=== PATIENT | female | born 1985 | race Caucasian/White ===

== ENCOUNTER → 2018-11-16 | Outpatient (CLI) | payer MEDICAID ==
--- NOTE | 2018-11-16 17:51 | RAD ---
Three-view thoracic spine series Clinical indications: Chronic back pain. No known injury. FINDINGS: Mild scoliotic curvature is seen. No compression fracture or discitis or lytic process is evident. There is minimal degenerative endplate spurring throughout the thoracic spine. IMPRESSION: No acute compression fracture. Electronically signed by: Gerry Lares MD (11/16/2018 5:48 PM) [id number]
--- NOTE | 2018-11-16 17:52 | RAD ---
Three-view lumbar spine series Clinical indications: Chronic back pain. No known injury. FINDINGS: The transverse processes are intact. There is grade 1 anterolisthesis of L5-S1 which may be secondary to bilateral spondylolysis of L5. No compression fracture or discitis or lytic process is evident. IMPRESSION: Minimal grade 1 anterolisthesis of L5-S1 which may be secondary to bilateral spondylosis of L5. This may be further evaluated with CT study of the lumbar spine. Electronically signed by: Gerry Lares MD (11/16/2018 5:49 PM) [facility]
== END | disposition home or self-care (01) ==
LOC: PMG 14:24
PROVIDERS: ATTEND Registered Nurse
DX: M43.16 Spondylolisthesis, lumbar region (principal); M51.34 Other intervertebral disc degeneration, thoracic region; M41.87 Other forms of scoliosis, lumbosacral region; G89.29 Other chronic pain
CPT/HCPCS: 72072; 72100

== ENCOUNTER → 2018-11-22 | Outpatient (CLI) | payer MEDICAID ==
--- NOTE | 2018-11-22 16:15 | RAD ---
PQRS Compliance statement: One or more of the following individualized dose reduction techniques were utilized for this examination: 1. Automated exposure control. 2. Adjustment of the mA and/or kV according to patient size. 3. Use of iterative reconstruction technique. Indication:Back pain. TECHNIQUE: CT lumbar spine without IV contrast with multiplanar reformats. COMPARISON: None. FINDINGS: Lumbar spine is in normal anatomic alignment. No compression deformities. There are 5 lumbar type vertebral bodies. Facet joints are in normal anatomic alignment with bilateral L5 pars defect. No anterolisthesis of L5 over S1. Segmental analysis: L1-L2: No disc bulge or herniation. No facet arthropathy. No neuroforamina narrowing. L2-L3: Mild circumferential disc bulge flattening intrathecal sac. No facet arthropathy. No neuroforamina narrowing. L3-L4: Mild circumferential disc bulge flattening intrathecal sac. No facet arthropathy. No neuroforamina narrowing. L4-L5: Mild circumferential disc bulge flattening intrathecal sac. No facet arthropathy. Mild bilateral neuroforamina narrowing. L5-S1: No significant disc bulge or herniation. No facet arthropathy. No neuroforamina narrowing. Bilateral SI joints are within normal limits. IMPRESSION: Bilateral L5 pars defect without malalignment. No significant evidence of degenerative disc disease. Electronically signed by: Jack Guerrero DO (11/22/2018 4:12 PM) [id number]
--- NOTE | 2018-11-22 16:24 | RAD ---
Bone densitometry 11/22/2018 1:20 PM Indication: Screening exam Comparison Study: None. Discussion: Bone Densitometry was performed with dual photon absorption of the lumbar spine and proximal right femur. Lumbar Spine: Bone average density is 1.128g/cm2 for L1-L4. T-Score is -0.4. Right femoral neck: Bone average density is 0.851g/cm2. T-Score is -1.3. IMPRESSION: Osteopenia based on decreased bone mineral density, right femoral neck Note: Definitions established by the World Health Organization: Normal: T-score is -1.0 or above. Osteopenia: T-score is between -1.0 and -2.5. Osteoporosis: T-score is -2.5 or below. Electronically signed by: Hamilton Coy MD (11/22/2018 4:21 PM) [id number]
== END | disposition home or self-care (01) ==
LOC: CT 13:02
PROVIDERS: ATTEND Registered Nurse
DX: M85.88 Other specified disorders of bone density and structure, other site (principal); M48.061 Spinal stenosis, lumbar region without neurogenic claudication; E55.9 Vitamin D deficiency, unspecified; M43.10 Spondylolisthesis, site unspecified
CPT/HCPCS: 72131; 77080

== ENCOUNTER → 2018-12-08 | Outpatient (CLI) | payer MEDICAID ==
--- NOTE | 2018-12-08 15:23 | RAD ---
EXAM: Chest, 2 views. HISTORY: Cough. COMPARISON: None. FINDINGS: 2 views of the chest are obtained. There is no infiltrate, pleural effusion or pneumothorax. The heart is normal in size. IMPRESSION: No acute pulmonary finding. Electronically signed by: Lucila Gonzalez MD (12/08/2018 3:20 PM) [place] [id number]
== END | disposition home or self-care (01) ==
LOC: PMG 13:53
PROVIDERS: ATTEND Registered Nurse
DX: R06.02 Shortness of breath (principal)
CPT/HCPCS: 71046

== ENCOUNTER 2018-12-09 12:47 | Emergency (ER) | payer MEDICAID ==
[~2018-12-09] VITALS: Ht 170.2 cm; Wt 68.0 kg
--- NOTE | 2018-12-09 13:41 | PHYS DOC ---
Past History Past Medical History: Other Additional Past Medical Histor: osteopenia Past Surgical History: Other Additional Past Surgical Histo: cyst on wrist; ACL left Alcohol Use: None Drug Use: None Adult General Chief Complaint Chief Complaint: MULTIPLE COMPLAINTS [facility] HPI 33-year-old female presents with dizziness and altered sensation. The patient has been having symptoms like this on and off for a few weeks. She is being evaluated by her primary care physician. No definitive diagnosis has been made. Patient is supposed to see a charge master coordinator and a neurologist but has not had his appointments yet. She was given a be seen by her primary care physician came to the emergency room because she was feeling mildly short of breath and dizzy. She describes the dizziness as a lightheaded, off balance feeling. She's been having these episodes more recently this seemed to come and go without warning. She had recent blood work which was reported to be normal by her PCP. She did have an elevated MICHELE. She was also found to be osteopenic. Patient denies fever or chills. She has had no trauma or falls. Review of Systems Review of Systems Constitutional: Denies fever or chills [] Eyes: Denies change in visual acuity, redness, or eye pain [] HENT: Denies nasal congestion or sore throat [] Respiratory: Mild, intermittent shortness of breath [] Cardiovascular: No additional information not addressed in HPI [] GI: Denies abdominal pain, nausea, vomiting, bloody stools or diarrhea [] : Denies dysuria or hematuria [] Musculoskeletal: Denies back pain or joint pain [] Integument: Denies rash or skin lesions [] Neurologic: Dizziness. Denies headache, focal weakness or sensory changes [] Endocrine: Denies polyuria or polydipsia [] All other systems were reviewed and found to be within normal limits, except as documented in this note. Allergies Allergies Allergies Coded Allergies Type Severity Reaction Last Updated Verified erythromycin base Allergy Unknown Rash 12/09/18 Yes Physical Exam Physical Exam Constitutional: Well developed, well nourished, no acute distress, non-toxic appearance. [] HENT: Normocephalic, atraumatic, bilateral external ears normal, oropharynx moist, no oral exudates, nose normal. [] Eyes: PERRLA, EOMI, conjunctiva normal, no discharge. [] Neck: Normal range of motion, no tenderness, supple, no stridor. [] Cardiovascular:Heart rate regular rhythm, no murmur [] Lungs & Thorax: Bilateral breath sounds clear to auscultation [] Abdomen: Bowel sounds normal, soft, no tenderness, no masses, no pulsatile masses. [] Skin: Warm, dry, no erythema, no rash. [] Back: No tenderness, no CVA tenderness. [] Extremities: No tenderness, no cyanosis, no clubbing, ROM intact, no edema. [] Neurologic: Alert and oriented X 3, normal motor function, normal sensory function, no focal deficits noted. [] Psychologic: Affect normal, judgement normal, mood normal. [] Current Patient Data Vital Signs Vital Signs Date Time Temp Pulse Resp B/P (MAP) Pulse Ox O2 Delivery O2 Flow Rate FiO2 12/09/18 13:01 98.4 99 17 99 Room Air EKG EKG [] Radiology/Procedures Radiology/Procedures [] Impressions: Examination: CT HEAD WO CONTRAST History: Dizziness Comparison/Correlation: None Findings: Axial images were obtained without contrast. Ventricles are normal size. No intracranial hemorrhage, midline shift, or mass effect. Bony structures are unremarkable. Visualized paranasal sinuses are unremarkable Impression: No acute process. PQRS Compliance Statement: One or more of the following individualized dose reduction techniques were utilized for this examination: 1. Automated exposure control 2. Adjustment of the mA and/or kV according to patient size 3. Use of iterative reconstruction technique Electronically signed by: Danny Ga MD (12/09/2018 2:00 PM) [facility] DICTATED AND SIGNED BY: DANNY GA MD DATE: 12/09/18 1400 CC: EDITA SAM DO; ESDON ESTRADA PRIMARY CLINICIAN-C ~ Course & Med Decision Making Course & Med Decision Making Pertinent Labs and Imaging studies reviewed. (See chart for details) The patient's head CT is negative for acute findings. Her urine drug screen is negative. Her labs are completely unremarkable. Urinalysis is negative for infection. The patient's symptoms do not appear to be life-threatening. I have shared all these results with the patient. She is comfortable with discharge at this time. She will follow up as planned. She is stable for discharge at this time. [] Dragon Disclaimer Dragon Disclaimer This electronic medical record was generated, in whole or in part, using a voice recognition dictation system. Departure Departure: Impression: Primary Impression: Dizziness Disposition: 01 HOME, SELF-CARE Condition: STABLE Referrals: EDSON ESTRADA NP-C (PCP) Patient Instructions: Dizziness, [id number] EDITA SAM DO Dec 09, 2018 13:41
[2018-12-09] MEDS ORDERED: IV NORMAL SALINE 1,000ML 1,000 ML IV ONE (13:45)
--- NOTE | 2018-12-09 14:03 | RAD ---
Examination: CT HEAD WO CONTRAST History: Dizziness Comparison/Correlation: None Findings: Axial images were obtained without contrast. Ventricles are normal size. No intracranial hemorrhage, midline shift, or mass effect. Bony structures are unremarkable. Visualized paranasal sinuses are unremarkable Impression: No acute process. PQRS Compliance Statement: One or more of the following individualized dose reduction techniques were utilized for this examination: 1. Automated exposure control 2. Adjustment of the mA and/or kV according to patient size 3. Use of iterative reconstruction technique Electronically signed by: Danny Acosta MD (12/09/2018 2:00 PM) [facility]
[2018-12-09 14:09] LABS: BASO % 0 % (0-3); EOS % 1 % (0-3); HEMOGLOBIN 14.2 g/dL (12.0-15.5); LYMPH # 1.4 x10^3/uL (1.0-4.8); LYMPH % 23 % (24-48); MEAN CORPUSCULAR HEMOGLOBIN 31 pg (25-35); MEAN CORPUSCULAR HGB CONC 34 g/dL (31-37); MEAN CORPUSCULAR VOLUME 92 fL (79-100); MONO # 0.4 x10^3/uL (0.0-1.1); MONO % 7 % (0-9); NEUT # 4.4 x10^3uL (1.8-7.7); NEUT % 70 % (31-73); PLATELET COUNT 170 x10^3/uL (140-400); RED BLOOD COUNT 4.58 x10^6/uL (3.50-5.40); RED CELL DISTRIBUTION WIDTH 12.2 % (11.5-14.5); WHITE BLOOD COUNT 6.3 x10^3/uL (4.0-11.0)
[2018-12-09 14:17] LABS: BARBITURATES NEG (NEG); BENZODIAZEPINES NEG (NEG); CANNABINOIDS NEG (NEG); COCAINE NEG (NEG); METHADONE NEG (NEG); OPIATES NEG (NEG); PHENCYCLIDINE NEG (NEG)
[2018-12-09 14:18] LABS: AMPHETAMINE/METHAMPHETAMINE NEG (NEG)
[2018-12-09 14:28] LABS: BACTERIA,URINE 0 /HPF (0-FEW); BILIRUBIN,URINE NEG (NEG); CLARITY,URINE CLEAR; COLOR,URINE YELLOW; GLUCOSE,URINE NEG (NEG); NITRITE,URINE NEG (NEG); RBC,URINE RARE /HPF (0-2); SQUAMOUS EPITHELIAL CELL,UR MOD /LPF; UROBILINOGEN,URINE 0.2 mg/dL (0.2 mg/dL); WBC,URINE RARE /HPF (0-4)
[2018-12-09 14:29] LABS: ALBUMIN 4.3 g/dL (3.4-5.0); ALBUMIN/GLOBULIN RATIO 1.1 (1.0-1.7); CALCIUM 9.2 mg/dL (8.5-10.1); CREATININE 0.7 mg/dL (0.6-1.0); GFR 97.6; POTASSIUM 3.5 mmol/L (3.5-5.1); TOTAL BILIRUBIN 0.4 mg/dL (0.2-1.0); TOTAL PROTEIN 8.2 g/dL (6.4-8.2)
[2018-12-09 14:33] VITALS: BP 116/77
== END 2018-12-09 14:33 | disposition home or self-care (01) ==
LOC: ER 12:47
DX: R42 Dizziness and giddiness (principal); R06.02 Shortness of breath; M85.80 Other specified disorders of bone density and structure, unspecified site; Z88.1 Allergy status to other antibiotic agents
CPT/HCPCS: 36415; 70450; 80053; 80307; 81001; 85025; 96360; 99285-25; J7030

== ENCOUNTER → 2018-12-14 | Outpatient (CLI) | payer MEDICAID ==
[2018-12-09 14:33] VITALS: BP 116/77
[~2018-12-14] MED LIST: IOHEXOL 240 MG/ML 50ML VIAL. ONE; IOHEXOL 300 MG/ML 75 ML VIAL. IV ONE
--- NOTE | 2018-12-14 16:10 | RAD ---
EXAM: Abdomen and pelvis CT with intravenous contrast. HISTORY: Right upper quadrant pain. TECHNIQUE: Computed tomographic images of the abdomen and pelvis were obtained following the administration of intravenous contrast. Multiplanar reformatting was performed. *One or more of the following individualized dose reduction techniques were utilized for this examination: 1. Automated exposure control. 2. Adjustment of the mA and/or kV according to patient size. 3. Use of iterative reconstruction technique. COMPARISON: None. FINDINGS: Evaluation of the lower thorax is unremarkable. No suspicious hepatic lesion is seen. There is mild periportal edema, likely due to the hydration status of patient. The gallbladder, pancreas, spleen and adrenal glands are unremarkable. The kidneys and urinary bladder are unremarkable. There is no evidence of bowel obstruction. There is a tampon within the vagina. The uterus is retroverted. There is a complex cystic lesion with internal septation or cyst with adjacent daughter cyst within the left ovary, measuring 5.6 cm in maximum dimension. There is no lymphadenopathy. There is no suspicious osseous lesion. There is grade 1 anterolisthesis of L5 on S1 with associated bilateral pars defects. IMPRESSION: 1. Complex left ovarian cyst with internal septation or adjacent daughter cyst measuring 5.6 cm maximum dimension. Follow up with a pelvic sonogram is recommended given the size in complex nature of this cyst. 2. Mild periportal edema, a finding which can be seen with bolus patient hydration. Electronically signed by: Lucila Gonzalez MD (12/14/2018 4:07 PM) [facility]
== END | disposition home or self-care (01) ==
LOC: CT 13:03
PROVIDERS: ATTEND Registered Nurse
DX: R10.11 Right upper quadrant pain (principal); N83.202 Unspecified ovarian cyst, left side; N85.4 Malposition of uterus
CPT/HCPCS: 74177; Q9967

== ENCOUNTER → 2018-12-21 | Outpatient (CLI) | payer MEDICAID ==
[2018-12-09 14:33] VITALS: BP 116/77
--- NOTE | 2018-12-21 14:19 | RAD ---
EXAM: Pelvic sonogram. HISTORY: Ovarian cyst on CT. TECHNIQUE: Sonographic imaging of the pelvis was performed. COMPARISON: CT dated 12/14/2018. FINDINGS: The uterus measures 8.0 x 5.8 x 3.9 cm. The endometrial stripe measures 3.4 mm in thickness. There is a 5.5 cm left ovarian cyst with internal septations. There is a small right ovarian follicle. There is normal blood flow within both ovaries. There is no pelvic free fluid. IMPRESSION: 1. 5.5 cm complex left ovarian cyst. This is not a partially changed in size compared to the recent CT, allowing for differences in imaging modality. Sonographic follow-up can be performed to confirm resolution in this premenopausal female. 2. Otherwise, unremarkable pelvic sonogram. Electronically signed by: Lucila Gonzalez MD (12/21/2018 2:16 PM) [id number]
== END | disposition home or self-care (01) ==
LOC: US 12:47
PROVIDERS: ATTEND Registered Nurse
DX: N83.202 Unspecified ovarian cyst, left side (principal)
CPT/HCPCS: 76856